=== PATIENT | male | born 1965 | race Caucasian/White ===

== ENCOUNTER 2019-11-11 15:52 | Inpatient (IN) | payer MEDICARE, OTHER ==
[~2019-11-11] VITALS: Ht 167.6 cm; Wt 74.0 kg
[2019-11-11 16:08] VITALS: BP 128/76
[2019-11-11] MEDS ORDERED: VANCOMYCIN HCL 1 GM in NS 250ML 250 ML IV STA (16:37)
[2019-11-11] MEDS ORDERED: TORADOL IV STA (16:37)
--- NOTE | 2019-11-11 16:43 | ER.PDOC ---
General Chief Complaint: Extremities Stated Complaint: FOOT PAIN Time seen by MD: 16:41 Source: patient Exam Limitations: no limitations History of Present Illness Initial Comments Right foot pain for for 1 week, patient was treated in a Hospital in [place] 3 weeks ago for cellulitis of right foot. He was admitted for 1 week and discharged on Keflex. He finished taking Keflex 2 weeks ago and started experiencing pain 1 week ago which has gotten worse. He is travelling past [place] and decided to stop for treatment. He denies fever or chills. Recent Injury: No Severity: moderate Exacerbated By: walking movement Relieved By: nothing Prior symptoms/Treatment: Similar symptoms previous, Recenly Seen, Treated by Doctor, Recently Hospitalized Allergies: Coded Allergies: amitriptyline (Verified Allergy, Intermediate, 11/11/19) HALLUCINATIONS/AMS Past Medical History Medical History: arrhythmia, CVA/TIA/stroke, cardiac problems, congestive heart failure, COPD, diabetes, GERD, high cholesterol, heart attack, hypertension, renal disease Surgical History: cardiac cath, appendectomy, back, cholecystectomy, coronary bypass surgery, pacemaker/ICD, stent, shoulder, tonsillectomy Social History Alcohol Use: none Drug Use: none Review of Systems Constitutional: no symptoms reported Respiratory: no symptoms reported Cardiovascular: no symptoms reported Gastrointestinal: no symptoms reported Musculoskeletal: see HPI All Other Systems: Reviewed and Negative Physical Exam General Appearance: Alert, No Apparent Distress Lower Extremity: tenderness (mid plantar right foot with swelling), swelling (right foot) Joint Exam: joints nml, nml ROM, nml gait/weight bearing Vascular: no vascular compromise, pulses full/equal Neuro/Psych: sensation nml, motor nml, oriented x3, CN's nml as tested, mood/affect nml Skin: warmth/erythema (mid plantar right foot) EENT: eyes inspection nml, ENT inspection nml, pharynx nml Respiratory: no resp distress, breath sounds nml CVS: reg rate & rhythm, heart sounds nml Abdomen: non-tender, no organomegaly, no bruit/mass Results/Orders Results/Orders Orders - MARINO KING MD Cbc With Auto Diff (11/11/19 16:37) Comprehensive Metabolic Panel (11/11/19 16:37) Blood Culture (11/11/19 16:37) PT (11/11/19 16:37) Partial Thromboplastin Time. (1/25/20 16:37) Lactic Acid(Ml) (11/11/19 16:37) Vancomycin Hcl (Vancomycin Hcl) (11/11/19 16:37) Ketorolac Tromethamine (Toradol) (11/11/19 16:37) Ct Rt Lower Extremity W (11/11/19 16:40) Ketorolac Tromethamine (Toradol) (11/11/19 16:46) Vancomycin Hcl (Vancomycin Hcl) (11/11/19 16:46) 0.9 % Sodium Chloride (Ns 250ml) (11/11/19 16:46) 0.9 % Sodium Chloride (Ns 1000ml) (11/11/19 17:27) 0.9 % Sodium Chloride (Ns 1000ml) (11/11/19 18:43) 0.9 % Sodium Chloride (Ns 1000ml) (11/11/19 18:45) 0.9 % Sodium Chloride (Ns 100ml) (11/11/19 19:18) Morphine Sulfate (Morphine Sulfate) (11/11/19 19:19) Vital Signs Date Time Temp Pulse Resp B/P (MAP) Pulse Ox O2 Delivery O2 Flow Rate FiO2 11/11/19 16:08 98.7 92 20 128/76 (93) 100 Room Air 11/11/19 16:08 98.7 92 20 128/76 (93) 100 Room Air 11/11/19 16:08 98.7 92 20 11/11/19 16:05 98.7 92 20 100 Administered Medications Medications (Trade) Dose Ordered Sig/Hussein Route PRN Reason Start Time Stop Time Status Last Admin Dose Admin Ketorolac Tromethamine (Toradol) 30 mg STAT STAT IV 11/11/19 16:37 11/11/19 16:40 DC 11/11/19 16:51 30 MG Sodium Chloride 1,000 ml @ 1,200 mls/hr Q50M STAT IV 11/11/19 18:43 11/11/19 19:32 11/11/19 18:50 1,200 MLS/HR Sodium Chloride 1,000 ml @ 1,250 mls/hr Q48M STAT IV 11/11/19 17:27 11/11/19 18:14 DC 11/11/19 17:30 1,250 MLS/HR Vancomycin HCl 1 gm/Sodium Chloride 250 ml @ 175 mls/hr STAT STAT IV 11/11/19 16:37 11/11/19 18:02 DC 11/11/19 17:12 175 MLS/HR Laboratory Tests Test 11/11/19 16:43 11/11/19 17:52 White Blood Count 7.2 10^3/uL (4.5-11.0) Red Blood Count 4.80 10^6/uL (4.50-5.90) Hemoglobin 13.2 g/dL (13.9-16.3) L Hematocrit 38.6 % (37.0-53.0) Mean Corpuscular Volume 80.4 fL (78-100) Mean Corpuscular Hemoglobin 27.5 pg (26-34) Mean Corpuscular Hemoglobin Concent 34.2 g/dL (33-36.5) Red Cell Distribution Width 13.1 % (11.5-14.5) Platelet Count 221 10^3/uL (150-400) Mean Platelet Volume 11.7 fL (7.8-11.0) H Neutrophils (%) (Auto) 75.3 % (41.0-85.0) Lymphocytes (%) (Auto) 17.9 % (24.0-44.0) L Monocytes (%) (Auto) 4.6 % (5.0-12.0) L Neutrophils # (Auto) 5.4 10^3/uL (1.8-7.7) Lymphocytes # (Auto) 1.28 10^3/uL1 (1.0-4.8) Monocytes # (Auto) 0.3 10^3/uL (0.3-0.8) Absolute Immature Granulocyte (auto 0.02 10^3 u/L (0-2) Absolute Eosinophils (auto) 0.1 10^3/uL (0.0-0.2) Immature Granulocytes % 0.30 % (0.00-0.50) Eosinophils % 1.5 % (0.0-5.0) Basophils % 0.4 % (0.0-0.2) H Basophils # 0.0 10^3/uL (0.0-0.1) Prothrombin Time 10.8 SEC (9.4-11.5) Prothrombin Time INR (Non-Therap) 1.0 Activated Partial Thromboplast Time 23.6 SEC (24.67-30.72) Sodium Level 130 mmol/L (132-145) L Potassium Level 4.2 mmol/L (3.6-5.2) Chloride Level 94.0 mmol/L (96-109) L Carbon Dioxide Level 25.2 mmol/L (20.0-32) Anion Gap 15.0 Blood Urea Nitrogen 16 mg/dL (7-18) Creatinine 1.39 mg/dL (0.59-1.40) Estimated GFR () 64.7 (>/=60) Est GFR (CKD-EPI)(Non-Afr Israeli) 53.5 (>/=60) BUN/Creatinine Ratio 11.0 Glucose Level 462 mg/dL (70-110) *H Calcium Level 9.3 mg/dL (8.4-10.5) Total Bilirubin 0.5 mg/dL (0.2-1.0) Aspartate Amino Transferase (AST) 12 U/L (0-35) Alanine Aminotransferase (ALT) 15 U/L (12-78) Alkaline Phosphatase 215 U/L (50-136) H Total Protein 8.5 g/dL (6.4-8.2) H Albumin 3.2 g/dL (3.4-5.0) L Globulin 5.3 Lactic Acid Level 2.3 mmol/L (0.50-2.00) H Progress Progress CT RLE: Moderate localized soft tissue swelling involving the plantar aspect of the hindfoot subjacent to the calcaneus, consistent with cellulitis. Mild subcutaneous edema about the ankle and overlying the dorsum of the foot may also be secondary to cellulitis. No localized fluid collection or abscess. 2. No acute osseous abnormality. 3. Additional chronic findings, as above. Lactate is slightly high most likely related to patient hyperglycemia. Discussed with Dr. Del Rosario we agreed that patient is not septic at this time. Departure Time of Disposition: 19:26 Disposition: 09 ADMITTED INPATIENT Impression: Primary Impression: Cellulitis of foot, right Additional Impression: Uncontrolled diabetes mellitus Condition: Stable Referrals: PCP,UNKNOWN (PCP) PRIMARY CARE PROVIDER Comments Admitted to Dr. Barker Duration or Time Spent with Pa: 60 mins Problem Qualifiers Additional Impression: Uncontrolled diabetes mellitus Diabetes mellitus type: other specified (including NAKUL) Glycemic state: with hyperglycemia Qualified Codes: E13.65 - Other specified diabetes mellitus with hyperglycemia FERNANDO,MARINO Yepez MD Nov 11, 2019 16:43
[2019-11-11] MEDS ORDERED: NS 250ML 250 ML IV ONE (16:46)
[2019-11-11] MEDS ORDERED: VANCOMYCIN HCL 1 GM ONE (16:46)
[2019-11-11] MEDS ORDERED: TORADOL ONE (16:46)
[2019-11-11 17:07] LABS: BASOPHIL % 0.4 % (0.0-0.2); EOSINOPHIL # 0.1 10^3/uL (0.0-0.2); EOSINOPHIL % 1.5 % (0.0-5.0); LYMPHOCYTES # 1.28 10^3/uL1 (1.0-4.8); LYMPHOCYTES % 17.9 % (24.0-44.0); MEAN CORP HGB 27.5 pg (26-34); MONOCYTES # 0.3 10^3/uL (0.3-0.8); MONOCYTES % 4.6 % (5.0-12.0); NEUTROPHIL # 5.4 10^3/uL (1.8-7.7); NEUTROPHILS % 75.3 % (41.0-85.0); RED CELL DISTRIBUTION WIDTH 13.1 % (11.5-14.5)
[2019-11-11 17:23] LABS: CALCIUM 9.3 mg/dL (8.4-10.5); CARBON DIOXIDE 25.2 mmol/L (20.0-32)
--- NOTE | 2019-11-11 17:24 | NUR ---
Lab called with critical lab of Glucose [address] Hernandez notified [id number]
[2019-11-11] MEDS ORDERED: NS 1000ML 1,000 ML IV STA ×3 (17:27→19:29)
--- NOTE | 2019-11-11 17:56 | NUR ---
CT Patient to CT scan by bed.
--- NOTE | 2019-11-11 18:30 | NUR ---
LACTIC NOTIFIED DR PICHARDO OF LACTIC ACID OF 2.3
[2019-11-11] MEDS ORDERED: NS 1000ML 1,000 ML ONE (18:45)
--- NOTE | 2019-11-11 19:02 | DIREP ---
PROCEDURE:CT LOWER EXTREMITY-RT W/CONTRAST COMPARISON:None. INDICATIONS:pain under right foot with swelling TECHNIQUE:Helical CT images of the right foot and ankle were obtained following the administration of IV contrast. Axial, sagittal, and coronal images are provided. Images are viewed in bone and soft tissue windows. FINDINGS: BONES/JOINTS:No acute fracture dislocation. No focal lucency or erosive changes are seen to suggest osteomyelitis. Tiny posterior calcaneal spur. SOFT TISSUES:Moderate localized soft tissue swelling involving the plantar aspect of the hindfoot subjacent to the calcaneus, consistent with cellulitis. No localized fluid collection or abscess is identified. There is also mild subcutaneous edema overlying the medial and lateral aspects of the right ankle and overlying the dorsal aspect of the foot, which also may be secondary to cellulitis. Dense vascular calcifications are noted. OTHER:Negative. CONCLUSION: 1. Moderate localized soft tissue swelling involving the plantar aspect of the hindfoot subjacent to the calcaneus, consistent with cellulitis. Mild subcutaneous edema about the ankle and overlying the dorsum of the foot may also be secondary to cellulitis. No localized fluid collection or abscess. 2. No acute osseous abnormality. 3. Additional chronic findings, as above. Dictated by: Vicente Flores MD on 11/11/2019 at 06:56 PM
--- NOTE | 2019-11-11 19:10 | NUR ---
DR LISA PICHARDO ON PHONE WITH DR GONZALEZ
[2019-11-11] MEDS ORDERED: NS 100ML 100 ML IV ONE (19:18)
[2019-11-11] MEDS ORDERED: MORPHINE SULFATE ONE ×2 (19:19→23:55)
[2019-11-11] MEDS ORDERED: ZOSYN 3.375 GM 3.375 GM in NS 100ML 100 ML IV STA (19:29)
[2019-11-11] MEDS ORDERED: MORPHINE SULFATE IV STA (19:29)
[2019-11-11 20:20] VITALS: BP 166/87
[2019-11-11] MEDS ORDERED: TORS20TA2 PO (23:40)
[2019-11-11] MEDS ORDERED: TEMA15CA PO (23:40)
[2019-11-11] MEDS ORDERED: ROPI8TAB3 PO (23:40)
[2019-11-11] MEDS ORDERED: CYCL10TA2 PO (23:40)
[2019-11-11] MEDS ORDERED: SUCR1TAB34 PO (23:40)
[2019-11-11] MEDS ORDERED: NITR0.4T26 SL (23:40)
[2019-11-11] MEDS ORDERED: RANO10002 PO (23:40)
[2019-11-11] MEDS ORDERED: PANT40TA3 PO (23:40)
[2019-11-11] MEDS ORDERED: DABI110C PO (23:40)
[2019-11-11] MEDS ORDERED: TRAZ-163 PO (23:40)
[2019-11-11] MEDS ORDERED: DILT120C30 PO (23:40)
[2019-11-11] MEDS ORDERED: SERT50TA5 PO (23:40)
[2019-11-11] MEDS ORDERED: LISI-410 PO (23:40)
[2019-11-11 23:58] VITALS: BP 132/78
[2019-11-12] MEDS ORDERED: ZOFRAN IV PRN
[2019-11-12] MEDS ORDERED: NITROSTAT SL PRN
[2019-11-12] MEDS: MORPHINE SULFATE IV PRN ×5 (00:01→19:39)
[2019-11-12] MEDS: ZESTRIL PO SCH ×3 (00:01→22:32)
[2019-11-12] MEDS: ZOSYN 4.5 GM 4.5 GM in NS 100ML 100 ML IV SCH ×4 (01:30→19:54)
[2019-11-12] MEDS ORDERED: NS 250ML 250 ML IV ONE ×2 (03:31→04:35)
[2019-11-12 04:06] VITALS: BP 121/67
[2019-11-12] MEDS ORDERED: VANCOMYCIN HCL 1 GM in NS 250ML 250 ML IV SCH ×2 (04:30→09:00)
[2019-11-12] MEDS ORDERED: VANCOMYCIN HCL 1 GM ONE (04:35)
[2019-11-12] MEDS ORDERED: DEXTROSE 50%-WATER SYRINGE IV PRN (05:00)
[2019-11-12] MEDS ORDERED: METF500T17 PO (06:50)
[2019-11-12 07:40] VITALS: BP 123/62
[2019-11-12] MEDS ORDERED: NS 100ML 100 ML IV ONE (07:52)
[2019-11-12] MEDS: CARAFATE PO SCH ×3 (07:55→17:02)
[2019-11-12] MEDS: HUMALOG SQ SCH ×4 (07:59→22:23)
[2019-11-12] MEDS ORDERED: HUMALOG SQ SCH (08:00)
[2019-11-12] MEDS: FLEXERIL PO SCH ×3 (08:09→22:31)
[2019-11-12] MEDS: DESYREL PO SCH ×3 (08:10→22:31)
[2019-11-12] MEDS: ZOLOFT PO SCH ×3 (08:10→22:32)
[2019-11-12] MEDS: DEMADEX PO SCH ×3 (09:00→22:31)
[2019-11-12] MEDS ORDERED: CARAFATE PO SCH (09:00)
[2019-11-12] MEDS: XARELTO PO SCH (09:56)
[2019-11-12] MEDS: RANEXA PO SCH ×2 (09:56→22:31)
[2019-11-12 11:50] VITALS: BP 123/73
--- NOTE | 2019-11-12 12:51 | PRM.PN ---
Subjective Subjective Date: Nov 12, 2019 Time: 12:35 Subjective Pt reports feeling a little better; still with some pains to his foot Patient History: Alzheimer's disease 32 MOTHER Congestive heart failure 32 MOTHER 33 FATHER Diabetes mellitus 32 MOTHER 33 FATHER FHx: cancer 33 FATHER VTE VTE Risk Total Score: 3 VTE Risk Score VTE Risk: Score 0-1 = Low Risk (Aggressive mobilization; early ambulation; no VTE prophylaxis required) Score 2: Moderate Risk (Intermittent/Pneumatic Compression Device OR Lovenox/Heparin/Coumadin) Score 3-4: High Risk (Intermittent/Pneumatic Compression Device AND Lovenox/Heparin/Coumadin) Score > or =5: Highest Risk (Intermittent/Pneumatic Compression Device AND Lovenox/Heparin/Coumadin) Antico:Hep/LMWH/Coum/Xarelto: Yes Mechanical device ordered: No Review of Systems Constitutional: No: Fever, Chills, Sweats, Weakness Eyes: No: Pain, Vision change, Conjunctivae inflammation ENT: No: Ear pain, Ear discharge, Nose pain, Nose discharge Respiratory: No: Cough, Dry, Shortness of breath, SOB with excertion Cardiovascular: No: Chest Pain, Palpitations, Orthopnea, Paroxysmal Noc. Dyspnea Gastrointestinal: No: Nausea, Vomiting, Abdominal Pain, Diarrhea Genitourinary: No Dysuria, No Frequency, No Incontinence, No Hematuria Musculoskeletal: foot pain; No: neck pain, shoulder pain, arm pain, back pain Skin: No: Jaundice Neurological: No: Numbness, Incoordination, Change in speech, Confusion, Seizures Allergies: Coded Allergies: amitriptyline (Verified Allergy, Intermediate, 11/11/19) HALLUCINATIONS/AMS Scheduled Cyclobenzaprine Hcl (Flexeril), 10 MG PO TID, (Reported) Dabigatran Etexilate Mesylate (Pradaxa), 110 MG PO TID, (Reported) Diltiazem Hcl (Diltiazem 24HR Cd), 120 MG PO HS, (Reported) Lisinopril (Lisinopril), 1 TAB PO BID, (Reported) Metformin Hcl (Metformin Hcl), 1 TAB PO BID, (Reported) Pantoprazole Sodium (Protonix), 40 MG PO HS, (Reported) Ranolazine (Ranexa), 1,000 MG PO TID, (Reported) Ropinirole Hcl (Ropinirole Hcl), 8 MG PO HS, (Reported) Sertraline Hcl (Sertraline Hcl), 50 MG PO TID, (Reported) Sucralfate (Carafate), 1 TAB PO TID, (Reported) Temazepam (Temazepam), 15 MG PO HS, (Reported) Torsemide (Torsemide), 20 MG PO BID, (Reported) Trazodone Hcl (Trazodone Hcl), 50 MG PO BID, (Reported) Scheduled PRN Nitroglycerin (Nitroglycerin), 0.4 MG SL PRN PRN for CHEST PAIN, (Reported) Objective Vitals and I/O Vital Sign - Last 24 Hours 11/11/19 11/11/19 11/11/19 11/11/19 16:05 16:08 16:08 16:08 Temp 98.7 98.7 98.7 98.7 Pulse 92 92 92 92 Resp 20 20 20 20 B/P (MAP) 128/76 (93) 128/76 (93) Pulse Ox 100 100 100 O2 Delivery Room Air Room Air 11/11/19 11/11/19 11/11/19 11/12/19 20:20 20:53 23:58 00:00 Temp 99.0 Pulse 79 71 71 Resp 16 18 B/P (MAP) 166/87 (113) 132/78 (96) 132/78 Pulse Ox 100 99 O2 Delivery Room Air Room Air Room Air 11/12/19 11/12/19 11/12/19 11/12/19 00:01 02:14 04:06 07:40 Temp 98.7 97.8 Pulse 71 67 65 Resp 16 18 B/P (MAP) 132/78 121/67 (85) 123/62 (82) Pulse Ox 100 O2 Delivery Room Air Room Air Room Air 11/12/19 08:10 B/P (MAP) 123/62 Intake and Output 11/11/19 11/11/19 11/12/19 15:00 23:00 07:00 Intake Total 1200 ml Output Total 700 ml Balance 500 ml General: Alert, Oriented X3, Cooperative, No acute distress HEENT: Atraumatic, PERRLA, EOMI, Mucous membr. moist/pink Neck: Supple, No JVD, No thyromegaly Lungs: Clear to auscultation, Normal air movement Heart: Regular rate, Normal S1, Normal S2 Abdomen: Normal bowel sounds, Soft, No tenderness Extremities: No clubbing, No cyanosis Neuro: Normal speech Psych/Mental Status: Mental status NL, Mood NL All Results(Lab/Rad) Laboratory Tests Test 11/11/19 16:43 11/11/19 17:52 11/11/19 19:52 11/11/19 20:00 White Blood Count 7.2 10^3/uL Red Blood Count 4.80 10^6/uL Hemoglobin 13.2 g/dL Hematocrit 38.6 % Mean Corpuscular Volume 80.4 fL Mean Corpuscular Hemoglobin 27.5 pg Mean Corpuscular Hemoglobin Concent 34.2 g/dL Red Cell Distribution Width 13.1 % Platelet Count 221 10^3/uL Mean Platelet Volume 11.7 fL Neutrophils (%) (Auto) 75.3 % Lymphocytes (%) (Auto) 17.9 % Monocytes (%) (Auto) 4.6 % Neutrophils # (Auto) 5.4 10^3/uL Lymphocytes # (Auto) 1.28 10^3/uL1 Monocytes # (Auto) 0.3 10^3/uL Absolute Immature Granulocyte (auto 0.02 10^3 u/L Absolute Eosinophils (auto) 0.1 10^3/uL Immature Granulocytes % 0.30 % Eosinophils % 1.5 % Basophils % 0.4 % Basophils # 0.0 10^3/uL Prothrombin Time 10.8 SEC Prothrombin Time INR (Non-Therap) 1.0 Activated Partial Thromboplast Time 23.6 SEC Sodium Level 130 mmol/L Potassium Level 4.2 mmol/L Chloride Level 94.0 mmol/L Carbon Dioxide Level 25.2 mmol/L Anion Gap 15.0 Blood Urea Nitrogen 16 mg/dL Creatinine 1.39 mg/dL Estimated GFR () 64.7 Est GFR (CKD-EPI)(Non-Afr Australian) 53.5 BUN/Creatinine Ratio 11.0 Glucose Level 462 mg/dL Calcium Level 9.3 mg/dL Total Bilirubin 0.5 mg/dL Aspartate Amino Transf (AST/SGOT) 12 U/L Alanine Aminotransferase (ALT/SGPT) 15 U/L Alkaline Phosphatase 215 U/L Total Protein 8.5 g/dL Albumin 3.2 g/dL Globulin 5.3 Lactic Acid Level 2.3 mmol/L Bedside Glucose 306 Lactic Acid Followup at 2 Hours 2.0 mmol/L Test 11/11/19 21:45 11/12/19 06:24 11/12/19 07:40 11/12/19 11:48 Bedside Glucose 261 202 210 240 Current Medications Medications (Trade) Dose Ordered Sig/Hussein Route PRN Reason Start Time Stop Time Status Last Admin Dose Admin Vancomycin HCl 1 gm/Sodium Chloride 250 ml @ 175 mls/hr STAT STAT IV 11/11/19 16:37 11/11/19 18:02 DC 11/11/19 17:12 Ketorolac Tromethamine (Toradol) 30 mg STAT STAT IV 11/11/19 16:37 11/11/19 16:40 DC 11/11/19 16:51 Ketorolac Tromethamine (Toradol) 30 mg STK-MED ONCE .ROUTE 11/11/19 16:46 11/11/19 16:48 DC Vancomycin HCl 1 ml @ ud STK-MED ONCE .ROUTE 11/11/19 16:46 11/11/19 16:48 DC Sodium Chloride 250 ml @ ud STK-MED ONCE IV 11/11/19 16:46 11/11/19 16:48 DC Sodium Chloride 1,000 ml @ 1,250 mls/hr Q48M STAT IV 11/11/19 17:27 11/11/19 18:14 DC 11/11/19 17:30 Sodium Chloride 1,000 ml @ 1,200 mls/hr Q50M STAT IV 11/11/19 18:43 11/11/19 19:33 DC 11/11/19 18:50 Sodium Chloride 1,000 ml @ ud STK-MED ONCE .ROUTE 11/11/19 18:45 11/11/19 18:47 DC Sodium Chloride 100 ml @ ud STK-MED ONCE IV 11/11/19 19:18 11/11/19 19:20 DC Morphine Sulfate (Morphine Sulfate) 4 mg STK-MED ONCE .ROUTE 11/11/19 19:19 11/11/19 19:21 DC Sodium Chloride 1,000 ml @ 50 mls/hr Q20H STAT IV 11/11/19 19:29 11/12/19 15:28 11/11/19 19:33 Morphine Sulfate (Morphine Sulfate) 4 mg STAT STAT IV 11/11/19 19:29 11/11/19 19:33 DC 11/11/19 19:33 Piperacillin Sod/ Tazobactam Sod 3.375 gm/Sodium Chloride 100 ml @ 100 mls/hr STAT STAT IV 11/11/19 19:29 11/11/19 20:28 DC 11/11/19 19:34 Cyclobenzaprine HCl (Flexeril) 10 mg TID PO 11/12/19 09:00 12/12/19 08:59 11/12/19 08:09 Diltiazem HCl (Cardizem Cd) 120 mg HS PO 11/12/19 21:00 12/12/19 20:59 11/12/19 00:00 Lisinopril (Zestril) 20 mg BID PO 11/12/19 00:00 12/12/19 00:00 11/12/19 08:10 Nitroglycerin (Nitrostat) 0.4 mg PRN PRN SL CHEST PAIN 11/12/19 00:00 12/12/19 00:00 Pantoprazole Sodium (Protonix) 40 mg HS PO 11/12/19 21:00 12/12/19 20:59 Sertraline HCl (Zoloft) 50 mg TID PO 11/12/19 09:00 12/12/19 08:59 11/12/19 08:10 Sucralfate (Carafate) 1 gm TID PO 11/12/19 09:00 11/12/19 07:19 DC Temazepam (Restoril) 15 mg HS PO 11/12/19 21:00 12/12/19 20:59 11/12/19 00:00 Torsemide (Demadex) 20 mg BID PO 11/12/19 09:00 12/12/19 08:59 Trazodone HCl (Desyrel) 50 mg BID PO 11/12/19 00:00 12/12/19 00:00 11/12/19 08:10 Ranolazine (Ranexa) 1,000 mg BID PO 11/12/19 09:00 12/12/19 08:59 11/12/19 09:56 Ropinirole HCl (Requip Xl) 8 mg HS PO 11/12/19 21:00 12/12/19 20:59 Morphine Sulfate (Morphine Sulfate) 4 mg Q4H PRN IV PAIN 7 - 10 11/12/19 00:00 12/12/19 00:00 11/12/19 09:56 Ondansetron HCl (Zofran) 4 mg Q4H PRN IV NAUSEA / VOMITING 11/12/19 00:00 12/12/19 00:00 Morphine Sulfate (Morphine Sulfate) 4 mg STK-MED ONCE .ROUTE 11/11/19 23:55 11/11/19 23:57 DC Vancomycin HCl 1 gm/Sodium Chloride 250 ml @ 175 mls/hr Q12HR IV 11/12/19 04:30 11/12/19 08:51 DC 11/12/19 05:10 Piperacillin Sod/ Tazobactam Sod 4.5 gm/Sodium Chloride 100 ml @ 100 mls/hr Q6H IV 11/12/19 01:30 12/12/19 01:29 11/12/19 07:56 Sodium Chloride 250 ml @ ud STK-MED ONCE IV 11/12/19 03:31 11/12/19 03:33 DC Vancomycin HCl 1 ml @ ud STK-MED ONCE .ROUTE 11/12/19 04:35 11/12/19 04:37 DC Sodium Chloride 250 ml @ ud STK-MED ONCE IV 11/12/19 04:35 11/12/19 04:37 DC Insulin Human Lispro (Humalog) Give when food is in front... TIDM SQ 11/12/19 08:00 11/12/19 07:19 DC Dextrose (Dextrose 50%-Water Syringe) 25 ml STAT PRN IV HYPOGLYCEMIA 11/12/19 05:00 12/12/19 04:59 Insulin Human Lispro (Humalog) Give when food is in front... ACHS SQ 11/12/19 07:30 12/12/19 07:59 11/12/19 12:08 Sucralfate (Carafate) 1 gm TIDAC PO 11/12/19 07:30 12/12/19 08:59 11/12/19 12:09 Sodium Chloride 100 ml @ ud STK-MED ONCE IV 11/12/19 07:52 11/12/19 07:54 DC Vancomycin HCl 1 gm/Sodium Chloride 250 ml @ 175 mls/hr Q12H IV 11/12/19 09:00 11/12/19 10:25 DC Rivaroxaban (Xarelto) 10 mg DAILY PO 11/12/19 09:30 12/12/19 09:29 11/12/19 09:56 Vancomycin HCl 1 gm/Sodium Chloride 250 ml @ 175 mls/hr Q12H IV 11/12/19 17:00 12/12/19 16:59 Course Sepsis Screening Results: Posi: NEGATIVE Sepsis Qualifier/Stage: NO DEFINITE RISK Duration or Total Time Spent w: 60 mins Vitals & review Data Vital Sign - Last 24 Hours 11/11/19 11/11/19 11/11/19 11/11/19 16:05 16:08 16:08 16:08 Temp 98.7 98.7 98.7 98.7 Pulse 92 92 92 92 Resp 20 20 20 20 B/P (MAP) 128/76 (93) 128/76 (93) Pulse Ox 100 100 100 O2 Delivery Room Air Room Air 11/11/19 11/11/19 11/11/19 11/12/19 20:20 20:53 23:58 00:00 Temp 99.0 Pulse 79 71 71 Resp 16 18 B/P (MAP) 166/87 (113) 132/78 (96) 132/78 Pulse Ox 100 99 O2 Delivery Room Air Room Air Room Air 11/12/19 11/12/19 11/12/19 11/12/19 00:01 02:14 04:06 07:40 Temp 98.7 97.8 Pulse 71 67 65 Resp 16 18 B/P (MAP) 132/78 121/67 (85) 123/62 (82) Pulse Ox 100 O2 Delivery Room Air Room Air Room Air 11/12/19 08:10 B/P (MAP) 123/62 Intake and Output 11/11/19 11/11/19 11/12/19 15:00 23:00 07:00 Intake Total 1200 ml Output Total 700 ml Balance 500 ml Laboratory Tests Test 11/11/19 16:43 11/11/19 17:52 11/11/19 19:52 11/11/19 20:00 White Blood Count 7.2 10^3/uL Red Blood Count 4.80 10^6/uL Hemoglobin 13.2 g/dL Hematocrit 38.6 % Mean Corpuscular Volume 80.4 fL Mean Corpuscular Hemoglobin 27.5 pg Mean Corpuscular Hemoglobin Concent 34.2 g/dL Red Cell Distribution Width 13.1 % Platelet Count 221 10^3/uL Mean Platelet Volume 11.7 fL Neutrophils (%) (Auto) 75.3 % Lymphocytes (%) (Auto) 17.9 % Monocytes (%) (Auto) 4.6 % Neutrophils # (Auto) 5.4 10^3/uL Lymphocytes # (Auto) 1.28 10^3/uL1 Monocytes # (Auto) 0.3 10^3/uL Absolute Immature Granulocyte (auto 0.02 10^3 u/L Absolute Eosinophils (auto) 0.1 10^3/uL Immature Granulocytes % 0.30 % Eosinophils % 1.5 % Basophils % 0.4 % Basophils # 0.0 10^3/uL Prothrombin Time 10.8 SEC Prothrombin Time INR (Non-Therap) 1.0 Activated Partial Thromboplast Time 23.6 SEC Sodium Level 130 mmol/L Potassium Level 4.2 mmol/L Chloride Level 94.0 mmol/L Carbon Dioxide Level 25.2 mmol/L Anion Gap 15.0 Blood Urea Nitrogen 16 mg/dL Creatinine 1.39 mg/dL Estimated GFR () 64.7 Est GFR (CKD-EPI)(Non-Afr Australian) 53.5 BUN/Creatinine Ratio 11.0 Glucose Level 462 mg/dL Calcium Level 9.3 mg/dL Total Bilirubin 0.5 mg/dL Aspartate Amino Transf (AST/SGOT) 12 U/L Alanine Aminotransferase (ALT/SGPT) 15 U/L Alkaline Phosphatase 215 U/L Total Protein 8.5 g/dL Albumin 3.2 g/dL Globulin 5.3 Lactic Acid Level 2.3 mmol/L Bedside Glucose 306 Lactic Acid Followup at 2 Hours 2.0 mmol/L Test 11/11/19 21:45 11/12/19 06:24 11/12/19 07:40 11/12/19 11:48 Bedside Glucose 261 202 210 240 Current Medications Medications (Trade) Dose Ordered Sig/Hussein PRN Reason Start Time Stop Time Status Last Admin Cyclobenzaprine HCl (Flexeril) 10 mg TID 11/12/19 09:00 12/12/19 08:59 11/12/19 08:09 Dextrose (Dextrose 50%-Water Syringe) 25 ml STAT PRN HYPOGLYCEMIA 11/12/19 05:00 12/12/19 04:59 Diltiazem HCl (Cardizem Cd) 120 mg HS 11/12/19 21:00 12/12/19 20:59 11/12/19 00:00 Insulin Human Lispro (Humalog) Give when food is in front... ACHS 11/12/19 07:30 12/12/19 07:59 11/12/19 12:08 Lisinopril (Zestril) 20 mg BID 11/12/19 00:00 12/12/19 00:00 11/12/19 08:10 Morphine Sulfate (Morphine Sulfate) 4 mg Q4H PRN PAIN 7 - 10 11/12/19 00:00 12/12/19 00:00 11/12/19 09:56 Nitroglycerin (Nitrostat) 0.4 mg PRN PRN CHEST PAIN 11/12/19 00:00 12/12/19 00:00 Ondansetron HCl (Zofran) 4 mg Q4H PRN NAUSEA / VOMITING 11/12/19 00:00 12/12/19 00:00 Pantoprazole Sodium (Protonix) 40 mg HS 11/12/19 21:00 12/12/19 20:59 Piperacillin Sod/ Tazobactam Sod 4.5 gm/Sodium Chloride 100 ml @ 100 mls/hr Q6H 11/12/19 01:30 12/12/19 01:29 11/12/19 07:56 Ranolazine (Ranexa) 1,000 mg BID 11/12/19 09:00 12/12/19 08:59 11/12/19 09:56 Rivaroxaban (Xarelto) 10 mg DAILY 11/12/19 09:30 12/12/19 09:29 11/12/19 09:56 Ropinirole HCl (Requip Xl) 8 mg HS 11/12/19 21:00 12/12/19 20:59 Sertraline HCl (Zoloft) 50 mg TID 11/12/19 09:00 12/12/19 08:59 11/12/19 08:10 Sodium Chloride 1,000 ml @ 50 mls/hr Q20H STAT 11/11/19 19:29 11/12/19 15:28 11/11/19 19:33 Sucralfate (Carafate) 1 gm TIDAC 11/12/19 07:30 12/12/19 08:59 11/12/19 12:09 Temazepam (Restoril) 15 mg HS 11/12/19 21:00 12/12/19 20:59 11/12/19 00:00 Torsemide (Demadex) 20 mg BID 11/12/19 09:00 12/12/19 08:59 Trazodone HCl (Desyrel) 50 mg BID 11/12/19 00:00 12/12/19 00:00 11/12/19 08:10 Vancomycin HCl 1 gm/Sodium Chloride 250 ml @ 175 mls/hr Q12H 11/12/19 17:00 12/12/19 16:59 LEVEL 1 SEPSIS INFECTION CRITE: ABX Therapy, Cellulitis O2 Sat by Pulse Oximetry: 100 Assessment/Plan Assessment/Plan Assessment/Plan 53 yo male with R lower leg/foot cellulitis, CAD, DM, HTN - cont IV abx - plan to consult surgery tomorrow - cont elevation and heat - follow clinically SPENSER GONZALEZ MD Nov 12, 2019 12:51
--- NOTE | 2019-11-12 13:19 | HPH ---
ADMIT DATE: 11/11/2019 I saw the patient in the ER on the evening of 11/11/2019 when I did my H and P. PRIMARY CARE PHYSICIAN: Out of town in [place]. Patient is being admitted as an inpatient to medsurg. ADMITTING DIAGNOSES: 1. Right lower leg and right foot cellulitis worsening and failing outpatient management. 2. Coronary artery disease, type 2 diabetes mellitus with hypertension, hypertensive heart disease. CHIEF COMPLAINT: "My right foot is killing me." HISTORY OF PRESENT ILLNESS: The patient is a 53-year-old gentleman who is traveling back to [place] from [place] with his . He was actually hospitalized in [place] about 3-4 weeks ago for his right foot cellulitis and facial cellulitis. At that time, he had a cardiac workup done that included heart cath that showed that his coronaries were clean. His stents were clean. He states that he was in the hospital for a few days, getting all these procedures done and put on IV antibiotics, was sent out on Keflex. He has been taking the Keflex and just finished it; however, he was driving through and came to our ER on his way home and his right foot started hurting again. When he came into the ER, he was in severe pain. He could not walk on it. No fevers have been reported. He did have some night sweats and chills. No trauma reported. He denies any chest pain currently, no shortness of breath, no abdominal pains, no syncope, no lethargy, no change in appetite. No dysuria, no melena, no hematochezia, no diarrhea, no constipation. PAST MEDICAL HISTORY: Significant for coronary artery disease, congestive heart failure, diabetes, hypertension, hypertensive heart disease, gastroesophageal reflux disease, high cholesterol. He did have a prior OR and he does have a history of atrial fibrillation. PAST SURGICAL HISTORY: He had several cardiac caths. He had 2 open heart surgeries, one was a 2-vessel bypass back around 2001 and a second one was around 9585-3477 with a 3-vessel bypass, tonsillectomy, cholecystectomy. He has a pacemaker ICD. He tells me 31 stents in his heart. Left shoulder surgery as well. He has had back surgery as well and appendectomy. SOCIAL HISTORY: He does not smoke. No illicit drugs, no alcohol reported. FAMILY HISTORY: Asked and noncontributory for this admission. ALLERGIES: AMITRIPTYLINE. MEDICATIONS: He is on include metformin, Flexeril, Pradaxa, diltiazem, lisinopril, nitroglycerin, Protonix, Ranexa, Requip, Zoloft, Carafate, temazepam, Demadex and trazodone. PHYSICAL EXAMINATION: VITAL SIGNS: In the ER, his temperature is 98.7, pulse rate was 92, respiratory rate was 20, blood pressure was 128/76, O2 sats of 100%. My physical exam is as follows: GENERAL: When I saw him in the ER, he is in no acute distress. He just received some morphine for his pain. HEENT: Oropharynx was clear. NECK: Supple, no JVD noted. HEART: S1, S2 audible, no murmurs. LUNGS: Clear bilaterally. ABDOMEN: Good bowel sounds, soft abdomen, no rebound, no guarding, no masses. EXTREMITIES: His right lower leg had some red streakiness up from the ankle and along his plantar side of his lateral foot, there is an area of a fluid collection I can definitely feel with surrounding redness, is very tender to touch. Nothing is open and nothing is oozing at this point. 2+ distal pulses are noted. LABORATORY DATA: Labs were drawn in the ER. White count 7200, hemoglobin of 13.2 and platelet count of 221. Coags were normal. Chemistry panel had a sodium 130, potassium 4.2, chloride 94, BUN 16, creatinine 1.39, glucose of 462. Lactic acid level was 2.3, alkaline phosphatase of 215, albumin 3.2. IMAGING STUDIES: He had a CT scan of the lower extremity that showed cellulitis of the plantar aspect of the hindfoot subadjacent to the calcaneus on the right side consistent with cellulitis. He has some mild edema about the ankle and overlying the dorsum of the foot, but no localized fluid collection noted. ASSESSMENT: We have this gentleman with right lower leg and right foot cellulitis that was progressive in nature and despite being on p.o. antibiotics, he is not getting any better from his recent hospitalization in [place]. I will go ahead and elevate his leg, put a heating pad to his right foot and leg and start him on IV vancomycin and Zosyn and follow him clinically over the next 24-36 hours to see if he needs surgical consultation. I will follow his blood sugars and his blood pressures and resume his home medications for now. Tess Barker MD DR: TEAGAN/miky JOB# [id number]
[2019-11-12 16:15] VITALS: BP 114/57
[2019-11-12] MEDS: VANCOMYCIN HCL 1 GM in NS 250ML 250 ML IV SCH (16:45)
[2019-11-12 20:00] VITALS: BP 127/60
[2019-11-12] MEDS ORDERED: CARDIZEM CD PO SCH (21:00)
[2019-11-12] MEDS ORDERED: REQUIP XL PO SCH (21:00)
[2019-11-12] MEDS ORDERED: PROTONIX PO SCH (21:00)
[2019-11-12] MEDS ORDERED: RESTORIL PO SCH (21:00)
--- NOTE | 2019-11-12 21:43 | NUR ---
SANDWICH PATIENT REQUEST SANDWICH - SANDWICH GIVEN AT THIS TIME - NO OTHER NEEDS.
[2019-11-12] MEDS ORDERED: REQUIP ONE (23:09)
[2019-11-13] VITALS: BP 127/65
--- NOTE | 2019-11-13 | NUR ---
NPO PT PLACED NPO AT MIDNIGHT FOR ANTICIPATED I&D PER DR GONZALEZ'S ORDERS
[2019-11-13] MEDS: MORPHINE SULFATE IV PRN ×2 (00:25→04:45)
[2019-11-13] MEDS ORDERED: NS 1000ML 1,000 ML IV SCH (01:00)
[2019-11-13] MEDS: ZOSYN 4.5 GM 4.5 GM in NS 100ML 100 ML IV SCH ×2 (02:00→09:23)
[2019-11-13 04:00] VITALS: BP 147/80
[2019-11-13] MEDS: VANCOMYCIN HCL 1 GM in NS 250ML 250 ML IV SCH (05:42)
[2019-11-13 06:54] VITALS: BP 139/73
[2019-11-13] MEDS: CARAFATE PO SCH ×2 (07:30→11:30)
[2019-11-13] MEDS: HUMALOG SQ SCH ×2 (07:30→11:30)
[2019-11-13] MEDS: RANEXA PO SCH (09:00)
[2019-11-13] MEDS: ZESTRIL PO SCH (09:00)
[2019-11-13] MEDS: XARELTO PO SCH (09:00)
[2019-11-13] MEDS: FLEXERIL PO SCH (09:00)
[2019-11-13] MEDS: DEMADEX PO SCH (09:00)
[2019-11-13] MEDS: DESYREL PO SCH (09:00)
[2019-11-13] MEDS: ZOLOFT PO SCH (09:22)
[2019-11-13] MEDS ORDERED: SULF1TAB24 PO (10:06)
[2019-11-13] MEDS ORDERED: CIPR500T86 PO (10:06)
--- NOTE | 2019-11-13 10:21 | NUR ---
DISCHARGE PLAN CASE MANAGEMENT VISITED WITH PATIENT CONCERNING DISCHARGE PLAN AND NEEDS. LIVES AT HOME WITH SPOUSE IN [place]. INDEPENDENT OF ADLS. DENIES NEED FOR HOME OXYGEN OR DME. CM EDUCATED PATIENT AND DAUGHTER ON HOME HEALTH, SNF/SBU, AND OUTPATIENT SERVICES. DENIES NEED FOR SERVICES AT THIS TIME. PCP IS DR. CHRIS RODRIGUEZ IN [place]. DISCHARGE PLAN IS TO DISCHARGE HOME WITH AND CONTINUE SELF CARE. PATIENT AND FAMILY WERE CAMPING IN [place]. HE BECAME DEHYDRATED AND FELL HIT HIS HEAD AND INJURED HIS FOOT. HE WAS TAKEN TO THE HOSPITAL IN [place]. THEN DISCHARGED. A WHEEL BEARING WENT ON ON HIS CAMPER IN [place], HE NEEDED MEDICAL ATTENTION FOR HIS FOOT. THE CAMPER IS PARKED AT [facility], FAMILY HAS ACCESS TO CAMPER AND FOOD THERE IF THEY NEED TO STAY. DISCHARGE PLAN IS TO DISCHARGE AND PATIENT IS PLANNING ON TRAVELING BACK HOME AND FOLLOWING UP WITH PRIMARY CARE PHYSICIAN AND POSSIBLE SURGEON TO HAVE WOUND DRAINED. HE DOES HAVE A GLUCOMETER AND ALL HIS DIABETIC SUPPLIES AND MEDICATIONS WITH HIM. CM WILL CONTINUE TO FOLLOW FOR DISCHARGE NEEDS.
[2019-11-13 11:23] VITALS: BP 139/73
--- NOTE | 2019-11-13 11:28 | NUR ---
DISCHARGE PATIENT BEING DISCHARGED HOME AT THIS TIME IN STABLE CONDITION. PATIENT DENIES NEEDING ANY ADDITIONAL RESOURCES AT THIS TIME. RELINQUISHED CARE FOR PATIENT AT THIS TIME.
--- NOTE | 2019-11-13 16:55 | DSH ---
DATE OF DISCHARGE: 11/13/2019 ADMITTING DIAGNOSES: Cellulitis of the right lower leg and right foot with coronary artery disease, hypertension, diabetes. DISCHARGE DIAGNOSES: Cellulitis of the right lower foot with underlying coronary artery disease, hypertension and diabetes. HOSPITAL COURSE: Is as follows: The patient is a pleasant 53-year-old gentleman who was traveling through. He was hospitalized in a hospital at [place] a few weeks ago and had a heart cath that was clear and had a facial abscess that was drained. He also had cellulitis of the right foot and leg. He was discharged on p.o. Keflex to go home to [place] with; however, he started to have intense pain to his right foot. He stopped at our facility on his way back. A CT scan does show significant cellulitis of the plantar region of his right foot as well as up his right lower leg. I put him in the hospital elevated his leg and put a heating pad to his right leg and start him on vancomycin and Zosyn. Within 48 hours, his pain is much improved. His swelling and redness are gone on his right lower leg and he only has this residual cellulitis in his plantar region of his right foot. I had our surgeon come by and take a look and he agreed that medical management is doing him very good at this point, he is afebrile, his vital signs are stable. He actually is wanting to go home to his regular doctor be seen because he was only driving through and explained to him that if we were to continue with the current plan, he will probably be in the hospital at least another 2-3 days and he is wanting to be discharged today on antibiotics so that he can go to home to his primary care doctor and have his foot continued to be taken care of over there. So, at this point, I will go ahead and discharge him on Cipro and Bactrim and we will get our wound care nurse to apply an Optifoam pad to his right foot to relieve the pressure so that he can drive home to see his primary care doctor. Continue his other home medications and resume his home diet. Tess Barker MD DR: TEAGAN/miky JOB# [id number]
== END 2019-11-13 12:32 | disposition home or self-care (01) | DRG 603 ==
LOC: ER 15:52 → MS 19:34
PROVIDERS: ADMIT Pediatrics; ATTEND Pediatrics
DX: L03.115 Cellulitis of right lower limb (principal); E11.65 Type 2 diabetes mellitus with hyperglycemia; E78.00 Pure hypercholesterolemia, unspecified; I11.0 Hypertensive heart disease with heart failure; I25.10 Atherosclerotic heart disease of native coronary artery without angina pectoris; I48.91 Unspecified atrial fibrillation; I50.9 Heart failure, unspecified; K21.9 Gastro-esophageal reflux disease without esophagitis; J44.9 Chronic obstructive pulmonary disease, unspecified; Z86.73 Personal history of transient ischemic attack (TIA), and cerebral infarction without residual deficits; I25.2 Old myocardial infarction; Z95.0 Presence of cardiac pacemaker; Z88.8 Allergy status to other drugs, medicaments and biological substances; Z79.899 Other long term (current) drug therapy; Z90.49 Acquired absence of other specified parts of digestive tract
CPT/HCPCS: 36415; 73701; 80053; 80202; 82948; 83605; 85025; 85610; 85730; 87040; 99285; G0378; J1885; J2270; J2543; J3370; J7030; J7050; Q9967